=== PATIENT | male | born 1955 | race Caucasian/White ===

== ENCOUNTER → 2023-04-06 | Outpatient (REF) | payer OTHER ==
[~2023-04-06] MED LIST: GADOBENATE DIMEGLUMINE 1 ML IV ONE; NEXIUM20 MG PO; VIAGRA25 MG PO
== END ==
LOC: NM 07:40
PROVIDERS: ATTEND Internal Medicine Gastroenterology
DX: R10.11 Right upper quadrant pain (principal); R16.0 Hepatomegaly, not elsewhere classified; R14.0 Abdominal distension (gaseous); R74.8 Abnormal levels of other serum enzymes
CPT/HCPCS: 74183; 78227; A9537; A9577